=== PATIENT | male | born 1940 | race African-American/Black ===

== ENCOUNTER 2017-03-31 11:36 | Outpatient (CLI) | payer OTHER ==
[2014-10-04 07:15] VITALS: BMI 28.3
[2017-03-31 13:54] LABS: BASOPHILS % (AUTO) 0.6 % (0.0-3.0); EOSINOPHILS # (AUTO) 0.3 K/ul (0.0-0.7); HEMATOCRIT 41.5 % (42.0-52.0); HEMOGLOBIN 13.7 g/dl (14.0-18.0); IMMATURE GRANULOCYTE % (AUTO) 0.2 % (0.0-5.0); LYMPHOCYTES # (AUTO) 1.2 K/uL (0.60-3.4); LYMPHOCYTES % (AUTO) 24.5 (10.0-50.0); MEAN CORPUSCULAR HEMOGLOBIN 34.1 pg (27.0-31.0); MEAN CORPUSCULAR VOLUME 103.2 fl (80.0-94.0); MONOCYTES # (AUTO) 0.5 K/uL (0.4-2.0); MONOCYTES % (AUTO) 10.7 (0-10); NEUTROPHILS # (AUTO) 2.7 K/ul (2.0-6.9); PLATELET COUNT 204 10^3/uL (140-440); RED BLOOD COUNT 4.02 10^6/ul (4.70-6.10); WHITE BLOOD COUNT 4.69 K/ul (4.2-10.2)
[2017-03-31 14:35] LABS: ALBUMIN 3.8 g/dL (3.4-5.0); ALBUMIN/GLOBULIN RATIO 1.03; ANION GAP 12.9; BILIRUBIN,TOTAL 0.76 mg/dL (0.00-1.20); BUN/CREATININE RATIO 13.63; CALCIUM 9.3 mg/dL (8.2-10.2); CHOL/HDL RATIO 3.2 (4.5-6.4); CREATININE 0.88 mg/dL (0.60-1.10); POTASSIUM 3.9 mmol/L (3.5-5.1); TOTAL PROTEIN 7.5 g/dL (5.8-8.1)
== END 2017-03-31 11:37 | disposition home or self-care (01) ==
LOC: LAB 11:36
PROVIDERS: ATTEND Emergency Medicine
DX: I50.9 Heart failure, unspecified (principal); E78.5 Hyperlipidemia, unspecified; I48.91 Unspecified atrial fibrillation; Z12.5 Encounter for screening for malignant neoplasm of prostate
CPT/HCPCS: 36415; 80053; 80061; 84443; 85025

== ENCOUNTER 2017-05-16 15:45 | Emergency (ER) ==
[2017-05-16 15:53] VITALS: BP 150/76; TEMP 99.3; BMI 27.8
[2017-05-16] MEDS ORDERED: MORPHINE 4 MG/ML SYRINGE IM STA (15:57)
[2017-05-16] MEDS ORDERED: ZOFRAN 4 MG/2 ML IM STA (15:57)
--- NOTE | 2017-05-16 16:18 | ED.PDOC ---
General ED Provider: Dr. CHRIS USGGS-ER Chief Complaint: Abdominal Pain Stated Complaint: i think i have a hernia--it hurts at time--no nausea or vomiting Time Seen by Physician: 15:50 Mode of Arrival: Wheelchair Information Source: Patient Exam Limitations: No limitations Primary Care Provider: [facility] Nursing and Triage Documentation Reviewed and Agree: Yes GI Complaint Exam - Abdominal Pain Complaint/Exam Onset: Gradual Duration: several hours Symptoms Are: Still present Timing: Intermittent Initial Severity: Mild Current Severity: Moderate Location of Pain: LLQ Radiates To: Reports: Inguinal Character: Reports: Dull, Aching, Burning Aggravating: Reports: Movement Alleviating: Reports: Spontaneous resolution Associated Signs and Symptoms: Denies: Diaphoresis, Fever, Cough, Chest pain, Dizziness, Back pain, Constipation, Blood in stool, Dysuria, Urinary frequency, Decreased urine output, Decreased appetite, Discharge, Nausea, Vomiting, Diarrhea, Decreased activity Differential Diagnoses: Other Review of Systems - Review Of Systems Constitutional: Reports: No symptoms Eyes: Reports: No symptoms Ears, Nose, Mouth, Throat: Reports: No symptoms Respiratory: Reports: No symptoms Cardiac: Reports: No symptoms GI: Reports: Other (noted reducible left inguinal hernia) : Reports: No symptoms Musculoskeletal: Reports: No symptoms Skin: Reports: No symptoms Neurological: Reports: No symptoms Endocrine: Reports: No symptoms Hematologic/Lymphatic: Reports: No symptoms All Other Systems: Reviewed and Negative Past Medical History - Past Medical History Previously Healthy: No Endocrine: Reports: Unknown Cardiovascular: Reports: Unknown Respiratory: Reports: Unknown Hematological: Reports: Unknown Gastrointestinal: Reports: Unknown Genitourinary: Reports: Unknown Neuro/Psych: Reports: Unknown Musculoskeletal: Reports: Unknown Cancer: Reports: Unknown - Surgical History General Surgical History: Reports: Unknown - Family History Family History: Reports: Unknown - Social History Smoking Status: Former smoker Hx Substance Use: No Alcohol Screening: None Lives: With family Physical Exam - Physical Exam Appearance: Well-appearing, No pain distress, Well-nourished Pain Distress: Mild Eyes: YASH, EOMI, Conjunctiva clear ENT: Ears normal, Nose normal, Oropharynx normal Neck: Supple Respiratory: Airway patent, Breath sounds clear, Breath sounds equal, Respirations nonlabored Cardiovascular: RRR, Pulses normal, No rub, No murmur GI/: Soft, No masses, Bowel sounds normal, No Organomegaly, Tender (left inguinal hernia--reducible) Musculoskeletal: Normal strength, ROM intact, No edema, No calf tenderness Skin: Warm, Dry, Normal color Neurological: Sensation intact, Motor intact, Reflexes intact, Cranial nerves intact, Alert, Oriented Psychiatric: Affect appropriate, Mood appropriate Interpretation - Radiology Interpretation Radiology Interpretation By: Radiologist Radiology Results: Positive Exam Interpreted: CT Scan Re-Evaluation - Re-Evaluation Time of Re-Evaluation: 17:07 Status: Improved Vital Signs Stable: Yes Pain Level: 0 Appearance: NAD Lungs: Clear Skin: Warm and Dry Neuro: Alert and Oriented X3 CV: RRR Physician Notification - Case Discussed Physician Notified: dr mast here to see the patient Time of Notification: 16:30 Critical Care Note - Critical Care Note Total Time (mins): 0 Course - Course Orders, Labs, Meds: Orders Category Date Time Status Morphine Sulfate [Morphine 4 mg/ml Syringe] MEDS 05/16/17 15:57 Discontinued 4 mg IM ONCE STA Ondansetron HCl/Pf [Zofran 4 mg/2 ml] MEDS 05/16/17 15:57 Discontinued 4 mg IM ONCE STA CT ABDOMEN/PELVIS WO CONTRAST Stat RADS 05/16/17 15:58 Completed Medications Discontinued Medications Generic Name Dose Route Start Last Admin Trade Name Freq PRN Reason Stop Dose Admin Morphine Sulfate 4 mg 05/16/17 15:57 05/16/17 16:06 Morphine 4 Mg/Ml Syringe IM 05/16/17 15:58 4 mg ONCE STA Administration Ondansetron HCl 4 mg 05/16/17 15:57 05/16/17 16:08 Zofran 4 Mg/2 Ml IM 05/16/17 15:58 4 mg ONCE STA Administration Vital Signs: Temp Pulse Resp BP Pulse Ox 05/16/17 15:45 99.3 F 101 H 20 150/76 H 97 Departure - Departure Time of Disposition: 17:07 Disposition: HOME SELF-CARE Discharge Problem: Reducible left inguinal hernia, Prostate cancer metastatic to bone Instructions: Inguinal Hernia (ED) Condition: Stable Pt referred to PMD for follow-up: Yes Additional Instructions: f/u with dr loomis this week--if any vomiting return to the er Allergies/Adverse Reactions: Allergies venom-honey bee [bee venom (honey bee)] Allergy (Severe, Verified 05/16/17 15:51 ) Hives Home Medications: Ambulatory Orders Aspirin 81 mg PO DAILY 06/27/14 Multi Vitamin Daily 1 each PO DAILY 06/12/15 Disposition Discussed With: Patient, Family
--- NOTE | 2017-05-16 16:59 | CT ---
EXAM: CT abdomen pelvis without contrast TECHNIQUE: Helical axial CT of the abdomen pelvis was performed without contrast with coronal and s agittal reconstructions. COMPARISON: Bone scan from 09/09/2012 HISTORY: Left groin pain and history of prostate cancer FINDINGS: There are bilateral fat containing inguinal hernias. The left side however demonstrates some minimal edema and there is a bowel loop seen approaching the hernia. There are no bowel loops within the hernia at this time. There is no obstruction or ileus. There is no free air or free flu id or bowel wall thickening. Osseous structures demonstrate extensive blastic lesions consistent with osseous metastatic disease from prostate cancer. There is no pathologic compression at this time. There are very advanced dege nerative changes noted otherwise. The liver, spleen, pancreas, adrenal glands and kidneys are unremarkable. There are no kidney stone s and there is no hydronephrosis. Lung bases are well-aerated. There is calcific atherosclerosis o f the aorta. Both ureters demonstrate normal course and caliber and there are no filling defects in the urinary bladder. The appendix is normal as well as the gallbladder. IMPRESSION: 1. Bilateral fat containing inguinal hernias as described with the left hernia demonstrating some e rin and a very nearby bowel loop. There are no bowel loops within the hernia at this time. 2. Extensive osseous metastatic disease. 3. Other miscellaneous findings as above.
== END 2017-05-16 17:13 | disposition home or self-care (01) ==
LOC: ED 15:45
DX: K40.90 Unilateral inguinal hernia, without obstruction or gangrene, not specified as recurrent (principal); C61 Malignant neoplasm of prostate; C79.51 Secondary malignant neoplasm of bone
CPT/HCPCS: 96372; 99282

== ENCOUNTER 2017-05-27 19:01 | Observation (INO) ==
[2017-05-27] MEDS ORDERED: CITRATE OF MAGNESIA PO STA (19:31)
--- NOTE | 2017-05-27 19:34 | ED.PDOC ---
General ED Provider: Dr. ARETHA GONSALVES Chief Complaint: Constipation Stated Complaint: Patient was recently started on Percoctes, for the metastatic prostate cancer, ever since he is been consti[ated. last BM 4 days, ago, now started having abdominal pain so came for the evaluation. Time Seen by Physician: 19:32 Mode of Arrival: Wheelchair Information Source: Patient Primary Care Provider: ARETH[facility] Nursing and Triage Documentation Reviewed and Agree: Yes GI Complaint Exam - Abdominal Pain Complaint/Exam Onset: Gradual Symptoms Are: Still present Timing: Constant Initial Severity: Mild Current Severity: Mild Location of Pain: Discrete Character: Reports: Dull, Aching Aggravating: Reports: None Alleviating: Reports: None Associated Signs and Symptoms: Reports: Constipation. Denies: Diaphoresis, Fever, Cough, Chest pain, Dizziness, Back pain, Blood in stool, Dysuria, Urinary frequency, Decreased urine output, Decreased appetite, Discharge, Nausea , Vomiting, Diarrhea, Decreased activity AAA Risk Factors: Reports: None Cardiac Risk Factors: Reports: None Testicular Torsion Risk Factors: Reports: None Surgical Obstruction Risk Factors: Reports: None Related Surgical History: Reports: None Abdominal Findings: Present: None Differential Diagnoses: Constipation Review of Systems - Review Of Systems Constitutional: Reports: No symptoms Eyes: Reports: No symptoms Ears, Nose, Mouth, Throat: Reports: No symptoms Respiratory: Reports: No symptoms Cardiac: Reports: No symptoms GI: Reports: Abdominal pain, Constipated : Reports: No symptoms Musculoskeletal: Reports: No symptoms Skin: Reports: No symptoms Neurological: Reports: No symptoms Endocrine: Reports: No symptoms Hematologic/Lymphatic: Reports: No symptoms All Other Systems: Reviewed and Negative Past Medical History - Past Medical History Previously Healthy: No Endocrine: Reports: Dyslipidemia Cardiovascular: Reports: Hypertension, CHF, A-Fib Respiratory: Reports: Unknown Hematological: Reports: Unknown Gastrointestinal: Reports: Unknown Genitourinary: Reports: Unknown Neuro/Psych: Reports: Unknown Musculoskeletal: Reports: Unknown Cancer: Reports: Other (prostate with mets) - Surgical History General Surgical History: Reports: CABG (avr), Orthopedic (rt above knee amputation.) - Family History Family History: Reports: Unknown - Social History Smoking Status: Former smoker Hx Substance Use: No Alcohol Screening: None Physical Exam - Physical Exam Appearance: Ill-appearing, Obese Eyes: YASH, EOMI, Conjunctiva clear ENT: Ears normal, Nose normal, Oropharynx normal Respiratory: Airway patent, Breath sounds clear, Breath sounds equal, Respirations nonlabored Cardiovascular: RRR, Pulses normal, No rub, No murmur GI/: Soft, No masses, No Organomegaly, Tender, Bowel sounds hypoactive Musculoskeletal: Normal strength, ROM intact, No edema, No calf tenderness Skin: Warm, Dry, Normal color Neurological: Sensation intact, Motor intact, Reflexes intact, Cranial nerves intact, Alert, Oriented Psychiatric: Affect appropriate, Mood appropriate Critical Care Note - Critical Care Note Total Time (mins): 0 Course - Course Hematology/Chemistry: 05/27/17 19:40 05/27/17 19:40 Orders, Labs, Meds: Lab Review 05/27/17 19:40 WBC 5.03 RBC 3.53 L Hgb 11.6 L Hct 35.6 L MCV 100.8 H MCH 32.9 H MCHC 32.6 RDW Coeff of Frank 13.0 Plt Count 203 Immature Gran % (Auto) 0.4 Neut % (Auto) 63.2 Lymph % (Auto) 22.7 [place] % (Auto) 10.3 H Eos % (Auto) 2.8 Baso % (Auto) 0.6 Immature Gran # (Auto) 0.0 Neut # 3.2 Lymph # 1.1 [place]dwell # 0.5 Eos # 0.1 Baso # 0.0 Sodium 140 Potassium 4.0 Chloride 105 Carbon Dioxide 24 Anion Gap 15.0 BUN 11 Creatinine 0.79 Estimated GFR (MDRD) 115.00 BUN/Creatinine Ratio 13.92 Glucose 103 Calcium 9.3 Total Bilirubin 0.77 AST 25 ALT 17 Alkaline Phosphatase 654 H Total Protein 7.2 Albumin 3.6 Globulin 3.6 Albumin/Globulin Ratio 1.00 Orders Category Date Time Status Enema [ED ENEMA/RECTAL TUBE] .ONCE EMERGENCY 05/27/17 21:11 Active CBC W/ AUTO DIFF Stat LAB 05/27/17 19:40 Completed COMPREHENSIVE METABOLIC PANEL Stat LAB 05/27/17 19:40 Completed Magnesium Citrate [Citrate of Magnesia] MEDS 05/27/17 19:31 Discontinued 10 oz PO ONCE STA CT ABDOMEN/PELVIS WO CONTRAST Stat RADS 05/27/17 19:31 Completed Medications Discontinued Medications Generic Name Dose Route Start Last Admin Trade Name Freq PRN Reason Stop Dose Admin Magnesium Citrate 10 oz 05/27/17 19:31 05/27/17 19:42 Citrate Of Magnesia PO 05/27/17 19:32 10 oz ONCE STA Administration Vital Signs: Temp Pulse Resp BP Pulse Ox 05/27/17 19:04 99.6 F 91 H 20 124/68 94 L Departure - Departure Time of Disposition: 21:52 Disposition: ADMITTED INPATIENT Discharge Problem: Constipation Abdominal pain Qualifiers: Abdominal location: generalized Qualifier Code: (R10.84) Generalized abdominal pain Instructions: Constipation (ED) Condition: Stable Pt referred to PMD for follow-up: No Allergies/Adverse Reactions: Allergies venom-honey bee [bee venom (honey bee)] Allergy (Severe, Verified 05/27/17 19:11 ) Hives Home Medications: Ambulatory Orders Aspirin 81 mg PO DAILY 06/27/14 Multi Vitamin Daily 1 each PO DAILY 06/12/15 Hydrocodone/Acetaminophen [Banner 5-325 Tablet] 1 each PO every 6 hours PRN 05/19 Disposition Discussed With: Patient, Family
[2017-05-27 19:50] LABS: BASOPHILS % (AUTO) 0.6 % (0.0-3.0); EOSINOPHILS # (AUTO) 0.1 K/ul (0.0-0.7); EOSINOPHILS % (AUTO) 2.8 % (0.0-7.0); HEMATOCRIT 35.6 % (42.0-52.0); HEMOGLOBIN 11.6 g/dl (14.0-18.0); IMMATURE GRANULOCYTE % (AUTO) 0.4 % (0.0-5.0); LYMPHOCYTES # (AUTO) 1.1 K/uL (0.60-3.4); LYMPHOCYTES % (AUTO) 22.7 (10.0-50.0); MEAN CORPUSCULAR HEMOGLOBIN 32.9 pg (27.0-31.0); MEAN CORPUSCULAR HGB CONC 32.6 (31.8-35.4); MEAN CORPUSCULAR VOLUME 100.8 fl (80.0-94.0); MONOCYTES # (AUTO) 0.5 K/uL (0.4-2.0); MONOCYTES % (AUTO) 10.3 (0-10); NEUTROPHILS # (AUTO) 3.2 K/ul (2.0-6.9); NEUTROPHILS % (AUTO) 63.2; PLATELET COUNT 203 10^3/uL (140-440); RED BLOOD COUNT 3.53 10^6/ul (4.70-6.10); WHITE BLOOD COUNT 5.03 K/ul (4.2-10.2)
[2017-05-27 20:27] LABS: ALBUMIN 3.6 g/dL (3.4-5.0); BILIRUBIN,TOTAL 0.77 mg/dL (0.00-1.20); BUN/CREATININE RATIO 13.92; CALCIUM 9.3 mg/dL (8.2-10.2); CREATININE 0.79 mg/dL (0.60-1.10); TOTAL PROTEIN 7.2 g/dL (5.8-8.1)
--- NOTE | 2017-05-27 20:28 | CT ---
EXAM: CT abdomen and pelvis without contrast. HISTORY: Constipation. TECHNIQUE: Multi-slice transaxial helical CT. Coronal and sagittal reformatons were performed. COMPARISON: 05/16/2017 FINDINGS: The heart is normal in size. Extensive coronary atherosclerosis is present. Aortic valvular calcif ications are present. The bibasilar dependent and subsegmental atelectasis is present. There is el evation of the right hemidiaphragm. Evaluation of the solid organs is limited without IV contrast. The spleen is normal in size. No ev idence of hydronephrosis or renal calculus is seen. Evaluation of the liver is limited secondary to beam-hardening artifact. The gallbladder, pancreas, and adrenal glands appear grossly unremarkable . The bowel is not dilated. The urine within the bladder appears relatively dense. The urinary bladde r is slightly prominent. In size. The prostate measures up to 5.1 cm in transverse diameter. Dive rticuli are seen within the colon. Moderate to large stool is seen throughout the colon. The append ix is normal in size and contains gas. Calcified plaques are present within the abdominal aorta and its major branch vessels. A tiny fat containing periumbilical hernia is present. Small fat contai orestes inguinal hernias are present. Diffuse sclerotic lesions are again seen throughout the pelvis, spine, and ribs. IMPRESSION: 1. No acute abdominal findings. 2. Moderate to large colonic stool burden compatible with clinical history of constipation. 3. Slightly increased density of the urine in the bladder. This may represent urinary sediment terra cristal pus or hemorrhage. Correlate with urinalysis. 4. Extensive atherosclerosis including coronary disease. 5. Colonic diverticulosis. 6. Prostatic enlargement. 7. Unchanged diffuse osseous metastatic disease.
[2017-05-27] MEDS ORDERED: TYLENOL PO PRN (21:53)
[2017-05-27] MEDS ORDERED: LOVENOX SUBCUT SCH (22:00)
[2017-05-27] MEDS ORDERED: NORCO 5-325 PO PRN (22:00)
[2017-05-27] MEDS ORDERED: SODIUM CHLORIDE 1,000 ML IV SCH (22:00)
[2017-05-27] MEDS ORDERED: LOVENOX ONE (23:25)
[2017-05-27 23:30] VITALS: BMI 26.3
[2017-05-28 04:41] LABS: BASOPHILS % (AUTO) 0.5 % (0.0-3.0); EOSINOPHILS # (AUTO) 0.2 K/ul (0.0-0.7); EOSINOPHILS % (AUTO) 3.9 % (0.0-7.0); HEMATOCRIT 32.3 % (42.0-52.0); HEMOGLOBIN 10.4 g/dl (14.0-18.0); IMMATURE GRANULOCYTE % (AUTO) 0.9 % (0.0-5.0); LYMPHOCYTES # (AUTO) 1.2 K/uL (0.60-3.4); MEAN CORPUSCULAR HEMOGLOBIN 32.7 pg (27.0-31.0); MEAN CORPUSCULAR HGB CONC 32.2 (31.8-35.4); MEAN CORPUSCULAR VOLUME 101.6 fl (80.0-94.0); MONOCYTES # (AUTO) 0.6 K/uL (0.4-2.0); MONOCYTES % (AUTO) 14.1 (0-10); NEUTROPHILS # (AUTO) 2.3 K/ul (2.0-6.9); NEUTROPHILS % (AUTO) 53.6; PLATELET COUNT 174 10^3/uL (140-440); RED BLOOD COUNT 3.18 10^6/ul (4.70-6.10); WHITE BLOOD COUNT 4.33 K/ul (4.2-10.2)
[2017-05-28 05:09] LABS: TROPONIN I 0.054 ng/ml (0.0000-0.4000)
[2017-05-28 05:10] LABS: ALBUMIN/GLOBULIN RATIO 0.94; ANION GAP 17.2; BILIRUBIN,TOTAL 0.69 mg/dL (0.00-1.20); BUN/CREATININE RATIO 14.92; CALCIUM 8.8 mg/dL (8.2-10.2); CREATININE 0.67 mg/dL (0.60-1.10); POTASSIUM 4.2 mmol/L (3.5-5.1); TOTAL PROTEIN 6.2 g/dL (5.8-8.1)
[2017-05-28] MEDS ORDERED: ASPIRIN CHEWABLE PO SCH (08:00)
[2017-05-28] MEDS ORDERED: ZESTRIL PO SCH (09:00)
[2017-05-28] MEDS ORDERED: LOPRESSOR PO SCH (09:00)
[2017-05-28] MEDS ORDERED: MULTIVITAMIN PO SCH (09:00)
[2017-05-28] MEDS ORDERED: LIPITOR PO SCH (09:00)
[2017-05-28] MEDS ORDERED: MULTI VITAMIN DAILY PO SCH (09:00)
[2017-05-28 10:39] VITALS: BP 127/67; TEMP 98.3
[2017-05-28] MEDS ORDERED: LOVENOX SUBCUT SCH (21:00)
--- NOTE | 2017-05-31 14:32 | PN ---
DATE OF SERVICE: 05/28/17 SUBJECTIVE: The patient had a good bowel movement and says that he feels better. The patient has a followup with Dr. Pereira. He was requesting if he can go home. As patient had a good bowel movement I think he can go now because the abdominal pain which was present yesterday was not there today. REVIEW OF SYSTEMS: CONSTITUTIONAL: No fever, no chills. HEENT: Normal. ENDOCRINE: No weight gain, no weight loss. CVS: No angina symptoms. No CHF symptoms. No palpitations. No atypical chest pain for CAD. No shortness of breath. No PND, no orthopnea. RESPIRATORY: No cough, no hemoptysis. GI: No nausea, no vomiting. No abdominal pain. : No hematuria. No polyuria. MUSCULOSKELETAL:. No joint swelling. PSYCHIATRIC: Not anxious. No depression. No suicidal thoughts. No homicidal thoughts. SKIN: Intact. No rash. PHYSICAL EXAMINATION: V/S: Blood pressure 124/68, respiratory rate 13, heart rate 67, temperature 97.9. HEENT: Normocephalic, atraumatic. Mucosa . NECK: Supple. No JVD, no carotid bruit. No lymphadenopathy. LUNGS: Clear to auscultation. No rales or rhonchi. HEART: S1, S2 normal. No S3. Systolic murmur positive, gallop or regurgitation. ABDOMEN: Soft, nontender. Bowel sounds active. No rigidity. No rebound or guarding. No CVA tenderness. EXTREMITIES: No clubbing, cyanosis or pedal edema. Right above knee ambulation. MUSCULOSKELETAL: No joint swelling. NEUROLOGIC: Awake, alert, oriented times three. No focal deficit. LYMPHATIC: No lymph nodes palpable. SKIN: Intact. LABS: Sodium 141, potassium 4.2, chloride 105, Bicarb 23, BUN 10, creatinine 0.67, WBC 4.33, hgb 10.4, hct 32.3, plt count 174 ASSESSMENT: 1. Constipation, opioid induced constipation 2. History of prostate cancer with METS to the pelvis, has followup with Dr. Pereira today 3. Status post above knee amputation 4. Atrial fibrillation not on any blood thinners 5. Aortic valve replacement by Dr. Graham PLAN: 1. Discharge the patient home 2. Miralax 17grams PO daily 3. Increase Fiber diet 4. Pain medications side effects and dependency and abuse been discussed and verbalized understanding. 5. Have followup with Dr. Pereira today and we will see the patient within one week in the office. TIME SPENT: More than 45 minutes MTDOle
--- NOTE | 2017-05-31 14:49 | PN ---
DATE OF SERVICE: 05/27/17 SUBJECTIVE: The patient was admitted from the ER for the constipation, obstipation and abdominal pain. CT scan showed the diffused clonic wall accumulation with the fecal matter. Once the patient was on the floor the patient was still complaining of abdominal pain. Enema was ordered and she was planning to give the enema which patient wants as the patient wanted to evacuate, he says it is very uncomfortable with not being evacuated for 4-5 days now. REVIEW OF SYSTEMS: CONSTITUTIONAL: No night sweats. No fatigue, malaise, lethargy. No fever or chills. HEENT: Eyes: No visual changes. No eye pain. No eye discharge. ENT: No runny nose. No epistaxis. No sinus pain. No sore throat. No odynophagia. No congestion. RESPIRATORY: No cough, no congestion. No hemoptysis. CARDIOVASCULAR: No angina symptoms. No CHF symptoms. No atypical chest pain for CAD. No palpitations. No shortness of breath. GASTROINTESTINAL: No abdominal pain. No nausea or vomiting. No diarrhea or constipation. No hematemesis. No hematochezia. GENITOURINARY: No urgency. No frequency. No dysuria. No hematuria. No obstructive symptoms. No discharge. No pain. No significant abnormal bleeding. MUSCULOSKELETAL: No musculoskeletal pain; no joint swelling. NEUROLOGICAL: No headache. No neck pain. No syncope. No seizures. No dizziness. PSYCHIATRIC: Not anxious. No depression. No suicidal thoughts. No homicidal thoughts. SKIN: No rash. No lesions. No wounds. ENDOCRINE: No unexplained weight loss. No weight gain. HEMATOLOGIC/LYMPHATIC: No anemia. No purpura. No petechiae. No prolonged or excessive bleeding. No palpable lymph nodes. PHYSICAL EXAMINATION: VITAL SIGNS: Blood pressure 145/81, respiratory rate 20, heart rate 82, temperature 97.8. HEENT: Head normocephalic, atraumatic. Eyes: Extraocular muscles are intact. Pupils are equal, round and reactive to light and accommodation. Ears: No lesions. Nose appeared normal. Throat: No exudate or erythema. Mucosa dry. Pallor positive. No icterus. NECK: Supple. No JVD, no carotid bruit. No lymphadenopathy or thyromegaly. LUNGS: Clear to auscultation. Percussion note normal. Chest symmetrical. HEART: S1, S2, no S3. Systolic murmurs. No cyanosis or clubbing. No ascites. Pulses: Dorsalis pedis and posterior tibial pulses +1 to +2 both sides. ABDOMEN: Soft. discomfort all over the belly. Bowel sounds hypoactive. No CVA tenderness. No mass felt. EXTREMITIES: No edema. Full range of motion of all extremities, equal. Right above knee amputation. NEUROLOGIC: No focal deficit. Cranial nerves II through XII are grossly intact. No headache, no double vision or headache. SKIN: Not dry. Intact. Turgor - normal. LYMPHATIC: No palpable lymph nodes/no lymphedema. MUSCULOSKELETAL: Normal joints with no swelling. Muscle tone is normal. LABS: WBC 5.03, hgb 11.6, hct 35.6, plt count 203, sodium 140, potassium 4.0, chloride 105, bicarb 24, BUN 11, creatinine 0.79. ASSESSMENT: 1. Constipation with obstipation 2. Narcotic induced constipation 3. Prostate Cancer with METS to the pelvis 4. Status post above knee amputation 5. Aortic Valve replacement by Dr. Graham 6. Atrial fibrillation, not on any blood thinners secondary to the falls and the GI bleed 7. Hypertension PLAN: 1. Enema 2. Continue home medication 3. Out of bed to chair 4. IV Fluids Will follow the patient in daily rounds. TIME SPENT: More than 30 minutes. Plan and coordination of the patient's care discussed in the presence of nurse. [place]
--- NOTE | 2017-07-16 09:33 | SSS ---
DATE OF SERVICE: 05/28/17 FINAL DIAGNOSIS: 1. Acute constipation and obstipation secondary to the opioid pain medication. 2. Recent fracture with upper leg fracture. 3. Recent fall 4. 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 Pereira. 5. Status post above knee amputation right side 6. Atrial fibrillation not on any blood thinners 7. Aortic valve replacement by Dr. Graham. 8. History of prostate cancer 9. Cataract surgery 10.Hiatal hernia DISCHARGE INSTRUCTIONS: Discharge the patient home. Miralax over the counter. The patient could not afford the Movantik it was expensive. CHIEF COMPLAINT: Constipation and Obstipation HISTORY OF PRESENT ILLNESS: Malik Goodman who has a history of prostatic cancer but the patient hasn't seek the urologist followup and the neglected the chemo and radiation but lately the patient been having more pain pelvic area and left hip area for this reason the patient was in the hospital. Dr. Appiah say the patient in the emergency and did the CT of abdomen and pelvis shows a lot of METS in the left pelvis. CT of the pelvis done which showed a lot of metastatic activity and at that time the patient was sent to the urologists and the patient was started on the pain medication and started having the constipation and the emergency room for the constipation and obstipation even the rectal suppository did not help at that time the patient was admitted to the observation. PAST MEDICAL HISTORY: Aortic valve replacement, three years ago History of prostate cancer with the METS Hypothyroidism in the past Hernia repair 20 years ago Cataract surgery Independent of ADL's Depression Anxiety Smoking, quite 20 years ago FAMILY HISTORY: Prostate Cancer Hypertension REVIEW OF SYSTEMS: CONSTITUTIONAL: No night sweats. No fatigue, malaise, lethargy. No fever or chills. Weakness and tiredness. HEENT: Eyes: No visual changes. No eye pain. No eye discharge. ENT: No runny nose. No epistaxis. No sinus pain. No sore throat. No odynophagia. No ear pain. No congestion. RESPIRATORY: No cough, no congestion. No hemoptysis. No shortness of breath. CARDIOVASCULAR: No angina symptoms. No CHF symptoms. No atypical chest pain for CAD. No palpitations. No orthopnea. GASTROINTESTINAL: Abdominal pain. No nausea or vomiting. Constipation. No hematemesis. No hematochezia. GENITOURINARY: No urgency. No frequency. No dysuria. No hematuria. No obstructive symptoms. No discharge. No pain. No significant abnormal bleeding. MUSCULOSKELETAL: No musculoskeletal pain. No joint swelling. Back pain, left hip pain, pelvic pain. NEUROLOGICAL: Awake, alert, oriented to time, place and person. No headache. No neck pain. No syncope. No seizures. No dizziness. PSYCHIATRIC: Not anxious. No depression. No suicidal thoughts. No homicidal thoughts. SKIN: No rash. No lesions. No wounds. ENDOCRINE: No unexplained weight loss. No weight gain. HEMATOLOGIC/LYMPHATIC: No anemia. No purpura. No petechiae. No prolonged or excessive bleeding. No palpable lymph nodes. PHYSICAL EXAMINATION: VITAL SIGNS: Blood pressure 127/67, respiratory rate 20, heart rate 67 and temperature 98.3 with saturation of 90%. HEENT: Head normocephalic, atraumatic. Eyes: Extraocular muscles are intact. Pupils are equal, round and reactive to light and accommodation. Ears: No lesions. Nose appeared normal. Throat: No exudate or erythema. Mucosa dry. Pallor positive. No icterus. NECK: Supple. No JVD, no carotid bruit. No lymphadenopathy or thyromegaly. LUNGS: Decreased and clear to auscultation. Percussion note normal. Chest symmetrical. HEART: S1, S2, no S3. No murmurs. No cyanosis or clubbing. No ascites. Pulses: Dorsalis pedis and posterior tibial pulses +1 to +2 both sides. ABDOMEN: Soft. Nontender. Bowel sounds active. No CVA tenderness. No mass felt. EXTREMITIES: No edema. Full range of motion of all extremities, equal. NEUROLOGIC: No focal deficit. Cranial nerves II through XII are grossly intact. No headache, no double vision or headache. The patient is awake and alert and oriented times three. SKIN: Dry. Intact. Turgor - normal. LYMPHATIC: No palpable lymph nodes/no lymphedema. MUSCULOSKELETAL: Normal joints with no swelling. Muscle tone is normal. Right above knee amputation. ALLERGIES: Venom-honey bee MEDICATIONS: Aspirin 81mg PO daily Multi-vitamin PO daily Lipitor 20mg Po daily Metoprolol 25m,g PO twice a day Lisinopril 10mg PO daily [place] 5-325 PO every 6 hours Miralax 17grams PO daily LABS/EKG'S/X-RAY/ECHO/ABG: WBC 4.33, hgb 10.4, hct 32.3, plt count 174, sodium 141, potassium 4.2, chloride 105, bicarb 23, BUN 10, creatinine 0.67. PROGRESS NOTES: See EMR. DIAGNOSES: 1. Constipation/Obstipation 2. Prostate cancer with pelvic metastatic 3. History of aortic valve replacement not on any anticoagulation 4. Hypertension 5. Dyslipidemia 6. Osteoarthritis 7. Failure to thrive RECOMMENDATIONS/PLAN: 1. Discharge the patient home 2. Followup with Urologist 3. Will follow up with patient in [facility] as outpatient TIME SPENT: More than 70 minutes. [place]
== END 2017-05-28 11:00 | disposition home or self-care (01) ==
LOC: ED 19:01 → MEDSURG A 22:08 → INTOOBSV 22:08
PROVIDERS: ADMIT Emergency Medicine; ATTEND Emergency Medicine
DX: K59.03 Drug induced constipation (principal); T40.2X5A Adverse effect of other opioids, initial encounter; R10.84 Generalized abdominal pain; C61 Malignant neoplasm of prostate; C79.89 Secondary malignant neoplasm of other specified sites; I48.91 Unspecified atrial fibrillation; K44.9 Diaphragmatic hernia without obstruction or gangrene; I10 Essential (primary) hypertension; E78.5 Hyperlipidemia, unspecified; M19.90 Unspecified osteoarthritis, unspecified site; R62.7 Adult failure to thrive; S72.90XD Unspecified fracture of unspecified femur, subsequent encounter for closed fracture with routine healing; W19.XXXD Unspecified fall, subsequent encounter; Z95.2 Presence of prosthetic heart valve; Z89.611 Acquired absence of right leg above knee; Z79.899 Other long term (current) drug therapy
CPT/HCPCS: 36415; 80053; 82550; 84484; 85025; 99217; 99226; 99284; 99285

== ENCOUNTER 2017-06-04 07:48 | Outpatient (CLI) | payer OTHER ==
--- NOTE | 2017-06-04 15:54 | NM ---
EXAM: Whole body bone scan HISTORY: Carcinoma prostate COMPARISON: Whole body bone scan on 10/10/2012 showed modestly increased activity involving L2 and L 4 vertebrae. Osteoarthritis. TECHNIQUE: Anterior and posterior whole body bone scans were obtained following the intravenous admi nistration of 26.2 mCi of technetium 99m HDP. FINDINGS: The patient is status post above-knee amputation right lower extremity. Numerous foci of increased isotope activity are identified involving proximal cervical spine, multiple anterior and p osterior ribs bilaterally, multiple thoracic and lumbar vertebrae, sacral ala bilaterally, left acet abulum, right ischial tuberosity, intertrochanteric region of the right hip, proximal femoral shaft on the left, left humeral neck, right proximal humeral shaft, scapula bilaterally. These lesions ar e new. Kidneys are barely identified. IMPRESSION: Extensive osseous metastasis. This is a new finding since 2011.
== END 2017-06-04 07:49 | disposition home or self-care (01) ==
LOC: RAD 07:48
PROVIDERS: ATTEND Internal Medicine Hematology & Oncology
DX: C61 Malignant neoplasm of prostate (principal); C79.51 Secondary malignant neoplasm of bone

== ENCOUNTER 2017-06-07 10:38 | Outpatient (CLI) | payer OTHER | END 2017-06-07 10:39 | disposition home or self-care (01) | LOC: AMBL 10:38 | PROVIDERS: ATTEND Emergency Medicine ==